=== PATIENT | male | born 1955 | race African-American/Black ===

== ENCOUNTER 2017-11-14 11:56 | Emergency (ER) | payer OTHER ==
[~2017-11-14] VITALS: Ht 182.9 cm; Wt 86.0 kg
[2017-11-14 14:54] VITALS: BP 126/76
[2017-11-14] MEDS ORDERED: KETOROLAC 60MG/2ML VIAL IM ONE (15:30)
== END 2017-11-14 15:59 | disposition home or self-care (01) ==
LOC: ER 12:54
DX: K04.7 Periapical abscess without sinus (principal); J06.9 Acute upper respiratory infection, unspecified; F17.200 Nicotine dependence, unspecified, uncomplicated; R56.9 Unspecified convulsions
CPT/HCPCS: 71010; 96372; 99283; J1885

== ENCOUNTER 2018-01-04 18:11 | Emergency (ER) | payer OTHER ==
[~2018-01-04] VITALS: Ht 182.9 cm; Wt 84.0 kg
[2018-01-04] MEDS ORDERED: IBUPROFEN 600MG TABLET PO ONE (20:15)
[2018-01-04] MEDS ORDERED: ACETAMINOPHEN 500MG TABLET PO ONE (20:15)
[2018-01-04] MEDS ORDERED: METHYLPREDNISOLONE ACETATE 40MG/ML VIAL IM ONE (20:30)
[2018-01-04 21:30] VITALS: BP 143/81
== END 2018-01-04 21:40 | disposition home or self-care (01) ==
LOC: ER 18:11
DX: M17.12 Unilateral primary osteoarthritis, left knee (principal); F17.210 Nicotine dependence, cigarettes, uncomplicated
CPT/HCPCS: 73562; 96372; 99284; J1030; Z7610

== ENCOUNTER 2018-02-08 23:07 | Emergency (ER) | payer OTHER ==
[~2018-02-08] VITALS: Ht 182.9 cm; Wt 86.0 kg
[2018-02-09] MEDS ORDERED: IBUPROFEN 800MG TABLET PO ONE (06:45)
[2018-02-09 11:48] VITALS: BP 111/65
[2018-02-11 10:07] LABS: BARBITURATE SCREEN Negative ug/mL (Cutoff:0.1); BENZODIAZEPINE SCREEN Negative ng/mL (Cutoff:20); OPIATES SCREEN Negative ng/mL (Cutoff:5); PHENCYCLIDINE SCREEN Negative ng/mL (Cutoff:8)
== END 2018-02-09 11:54 | disposition home or self-care (01) ==
LOC: ER 23:07
DX: S80.02XA Contusion of left knee, initial encounter (principal); M54.2 Cervicalgia; V49.59XA Passenger injured in collision with other motor vehicles in traffic accident, initial encounter; Y93.89 Activity, other specified; Y92.410 Unspecified street and highway as the place of occurrence of the external cause; M62.838 Other muscle spasm; F17.210 Nicotine dependence, cigarettes, uncomplicated
CPT/HCPCS: 36415; 72050; 73562; 80307; 99285; G0482

== ENCOUNTER 2018-06-10 17:24 | Emergency (ER) | payer OTHER ==
[~2018-06-10] VITALS: Ht 182.9 cm; Wt 87.0 kg
[2018-06-10] MEDS ORDERED: PHEN100C4 PO (18:04)
[2018-06-10] MEDS ORDERED: IPRATROPIUM/ALBUTEROL 0.5-3(2.5)MG/3ML NEB HHN ONE (18:45)
[2018-06-10 19:46] LABS: CLARITY URINE CLEAR (CLEAR); COLOR URINE YELLOW (YELLOW); KETONES URINE NEGATIVE (NEGATIVE); LEUKOCYTE ESTERASE URINE TRACE (NEGATIVE); NITRITE URINE NEGATIVE (NEGATIVE); OCCULT BLOOD URINE NEGATIVE (NEGATIVE); PROTEIN URINE NEGATIVE (NEGATIVE); SPECIFIC GRAVITY URINE 1.014 (1.005-1.030); UROBILINOGEN URINE 0.2 E.U./dL (0.2-1.0)
[2018-06-10 19:57] LABS: EOSINOPHILS % 2.4 % (0.0-5.0); HEMATOCRIT. 39.3 % (42.0-52.0); HEMOGLOBIN. 12.8 g/dL (14.0-18.0); LYMPHOCYTES % 29.9 % (20.0-50.0); MEAN CORPUSCULAR HEMOGLOBIN 29.9 pg (28.0-32.0); MEAN CORPUSCULAR VOLUME 92.1 fL (80.0-94.0); MEAN PLATELET VOLUME 9.8 fl (7.4-10.4); MONOCYTES % 10.7 % (2.0-8.0); PLATELET 181 x1000/uL (130-400); RED BLOOD CELL COUNT 4.27 mill/uL (4.7-6.1); RED CELL DISTRIBUTION WIDTH 14.7 % (11.6-14.6)
[2018-06-10 20:01] LABS: CHLORIDE 112 mEq/L (98-107)
[2018-06-10 20:02] LABS: *AMPHETAMINES SCREEN URINE NEGATIVE (NEGATIVE); *BARBITURATES SCREEN URINE NEGATIVE (NEGATIVE); *BENZODIAZEPINES SCREEN URINE NEGATIVE (NEGATIVE); *COCAINE SCREEN URINE NEGATIVE (NEGATIVE)
[2018-06-10 20:03] LABS: CANNABINOID URINE SCREEN NEGATIVE (NEGATIVE); METHADONE URINE SCREEN NEGATIVE (NEGATIVE); OPIATES URINE SCREEN NEGATIVE (NEGATIVE); PHENCYCLIDINE URINE SCREEN NEGATIVE (NEGATIVE)
[2018-06-10 20:05] LABS: ETHANOL BLOOD 116 mg/dL
[2018-06-10] MEDS ORDERED: PHENYTOIN SODIUM 1,000 MG in SODIUM CHLORIDE 0.9% 100 ML IV ONE (20:15)
[2018-06-10] MEDS ORDERED: PHENYTOIN SODIUM EXTENDED 100MG CAPSULE PO ONE (21:00)
[2018-06-10] MEDS ORDERED: ONDANSETRON 4MG ODT PO ONE (21:00)
[2018-06-10 21:20] VITALS: BP 139/85
== END 2018-06-10 21:28 | disposition left against medical advice (07) ==
LOC: ER 18:29
DX: G40.909 Epilepsy, unspecified, not intractable, without status epilepticus (principal); M19.90 Unspecified osteoarthritis, unspecified site; F17.210 Nicotine dependence, cigarettes, uncomplicated; Z71.6 Tobacco abuse counseling
CPT/HCPCS: 36415; 71045; 80053; 80185; 80305; 81003; 83880; 84484; 85025; 93005; 94640; 99285; 99406; G0482; J7620; Q0162; Z7610; J1165; J7050

== ENCOUNTER 2018-08-12 16:09 | Emergency (ER) | payer OTHER ==
[~2018-08-12] VITALS: Ht 182.9 cm; Wt 84.0 kg
[~2018-08-12 16:09] MED LIST: PHEN100C4 PO
[2018-08-12 16:19] VITALS: BP 154/95
== END 2018-08-12 18:02 | disposition left against medical advice (07) ==
LOC: ER 16:09
DX: Z53.21 Procedure and treatment not carried out due to patient leaving prior to being seen by health care provider (principal)

== ENCOUNTER 2021-03-18 12:53 | Emergency (ER) | payer OTHER ==
[~2021-03-18] VITALS: Ht 167.6 cm; Wt 84.0 kg
[2021-03-18] MEDS ORDERED: FURO-152 PO (13:01)
[2021-03-18] MEDS ORDERED: LOPHC2 GT (13:01)
[2021-03-18 14:09] LABS: BASOPHILS % 2.2 % (0.0-2.0); EOSINOPHILS % 3.4 % (0.0-5.0); HEMOGLOBIN. 13.5 g/dL (14.0-18.0); LYMPHOCYTES % 36.7 % (20.0-50.0); MEAN CORPUSCULAR HEMOGLOBIN 28.2 pg (28.0-32.0); MEAN CORPUSCULAR VOLUME 85.7 fL (80.0-94.0); MEAN PLATELET VOLUME 9.5 fl (7.4-10.4); MONOCYTES % 10.9 % (2.0-8.0); NEUTROPHILS % 46.8 % (40.0-76.0); PLATELET 194 x1000/uL (130-400); RED BLOOD CELL COUNT 4.78 mill/uL (4.7-6.1)
[2021-03-18 14:13] LABS: CHLORIDE 105 mEq/L (98-107)
[2021-03-18] MEDS ORDERED: ASPIRIN 81MG TABLET PO ONE (15:00)
[2021-03-18] MEDS ORDERED: FUROSEMIDE 40MG/4ML VIAL IV ONE (15:00)
[2021-03-18 15:45] VITALS: BP 145/86
== END 2021-03-18 15:50 | disposition left against medical advice (07) ==
LOC: ER 12:53
DX: R55 Syncope and collapse (principal); I11.0 Hypertensive heart disease with heart failure; I50.9 Heart failure, unspecified; M25.519 Pain in unspecified shoulder; G40.909 Epilepsy, unspecified, not intractable, without status epilepticus
CPT/HCPCS: 36415; 71045; 80053; 83880; 84484; 85025; 93005; 99285

== ENCOUNTER 2023-06-22 12:25 | Emergency (ER) | payer OTHER ==
[~2023-06-22] VITALS: Ht 182.9 cm; Wt 83.0 kg
[~2023-06-22 12:25] MED LIST changes: +FURO-152 PO; +LOPHC2 GT
[2023-06-22 12:43] VITALS: BP 143/81; PULSE 105; RESP 20; TEMP 97.9; O2SAT 99
== END 2023-06-22 17:49 | disposition left against medical advice (07) ==
LOC: ER 12:25
DX: Z53.21 Procedure and treatment not carried out due to patient leaving prior to being seen by health care provider (principal)
CPT/HCPCS: 99281